=== PATIENT | male | born 1990 | race African-American/Black ===

== ENCOUNTER 2020-12-21 15:17 | Emergency (ER) | payer MEDICAID, OTHER, SELFPAY ==
--- NOTE | 2020-12-21 15:21 | ED_ITS ---
HPI - Alcohol General Chief Complaint: ETOH/Substance Use Stated Complaint: ETOH ? DRUG USE Time Seen by Provider: 12/21/20 15:21 Source: patient and EMS Mode of arrival: EMS Limitations: other (intoxicated) History of Present Illness HPI narrative: bystanders noted him stumbling around, he c/o seizure this AM, smells of ETOH complaint: alcohol intoxication Last drink: Unknown Chronic alcohol use: Yes Previous visits for alcohol intoxication: No Recent trauma: No Associated symptoms: other ( i am having a seizure, i need IV dilaudid to fix it. ) Treatments prior to arrival: none Related Data Allergies Allergy/AdvReac Type Severity Reaction Status Date / Time No Known Allergies Allergy Unverified 04/26/20 18:12 [No Known Allergies*] Review of Systems Review of Systems: ROS unable to be obtained due to intoxication PMFSH Past Medical History Attestation statement: The following information was validated with the patient. Medical History Seizures Social History Social History (Updated 12/21/20 @ 15:32 by Linda Prince DO) Alcohol intake: current Smoking Status: Unknown if ever smoked Advance Directives: No Advance Directives Information Provided: Yes Physical Exam Vital Signs: Vital Signs: Last Vital Signs Pulse 109 H 12/21/20 15:35 Resp 20 12/21/20 15:35 BP 150/105 H 12/21/20 15:35 Pulse Ox 97 12/21/20 15:35 Body Mass Index 24.7 Appearance: Somnolent, ETOH odor , no acute distress Eyes: Pupils equal, round and reactive to light. Bright contacts noted ENT: Pharynx normal. Neck: Normal inspection. Neck supple. CVS: Normal heart rate and rhythm. Pulses normal. Respiratory: No respiratory distress. Breath sounds normal. Abdomen: Soft and nontender. Skin: Skin warm and dry. Normal skin color. Normal skin turgor. Extremities: No lower extremity edema. No calf ttp Neuro: Oriented X 3. No motor deficit. No sensory deficit. Course Course Course Narrative: signed out to Janelle ORDONEZ pending labs and improvement MDM - Alcohol MDM Narrative Medical decision making narrative: 30 yo male with hx of seizures, smells of ETOH - he states he had a seizure this morning after being found stumbling around he admits to drinking and is asking for dilaudid Lab Data Result diagrams: 12/21/20 16:06 12/21/20 16:06 Labs: Lab Results 12/21/20 Range/Units 16:06 WBC 4.7 L (4.8-10.8) X10*3/uL RBC 4.96 (4.60-5.80) X10*6/uL Hgb 14.9 (14.0-18.0) g/dl Hct 43.8 (42-52) % MCV 88.3 (80-98) fL MCH 30.0 (27.0-33.0) pg MCHC 34.0 (31.0-36.0) g/dl RDW 14.4 (11.0-16.0) % Plt Count 282 (160-400) X10*3/uL MPV 9.6 (9.4-12.4) fL Immature Gran % (Auto) 0.2 (0.0-0.4) % Neut % (Auto) 54.0 (45-73) % Lymph % (Auto) 35.3 (20-40) % [place] % (Auto) 7.7 (2-11) % Eos % (Auto) 2.4 (0-4) % Baso % (Auto) 0.4 (0-2) % Lymph # (Auto) 1.6 (1.2-4.9) X10*3/uL [place] # (Auto) 0.4 (0.1-1.2) X10*3/uL Eos # (Auto) 0.1 (0.0-0.4) X10*3/uL Baso # (Auto) 0.0 (0.0-0.2) X10*3/uL Abs Immat Gran (auto) 0.01 (0.00-0.03) X10*3/uL Absolute Neuts (auto) 2.5 (2.0-8.3) X10*3/uL Absolute Nucleated RBC 0.000 (0.0-0.012) X10*3/uL Nucleated RBC % (auto) 0.0 (0.0-0.2) /100WBC
[2020-12-21 15:35] VITALS: BP 150/105; BP 160/90; PULSE 109; PULSE 110; RESP 20; O2SAT 97; O2SAT 98; BMI 24.7
[2020-12-21] MEDS: levETIRAcetam in NaCl (iso-os) 1,000 MG/100 ML PIGGYBACK 400 MG IV (16:13)
[2020-12-21 16:15] LABS: MANUAL DIFF FLAG NO
[2020-12-21 16:19] LABS: Basophils Percent Auto 0.4 % (0-2); Eosinophils Absolute Auto 0.1 X10*3/uL (0.0-0.4); Eosinophils Percent Auto 2.4 % (0-4); Hematocrit 43.8 % (42-52); Hemoglobin 14.9 g/dl (14.0-18.0); Imm Gran Abs Auto 0.01 X10*3/uL (0.00-0.03); Imm Gran Pct Auto 0.2 % (0.0-0.4); Lymphocytes Absolute Auto 1.6 X10*3/uL (1.2-4.9); Lymphocytes Percent Auto 35.3 % (20-40); Mean Corpuscular Volume 88.3 fL (80-98); Mean Platelet Volume 9.6 fL (9.4-12.4); Monocytes Absolute Auto 0.4 X10*3/uL (0.1-1.2); Monocytes Percent Auto 7.7 % (2-11); Neutrophils Absolute Auto 2.5 X10*3/uL (2.0-8.3); Platelet Count 282 X10*3/uL (160-400); Red Blood Count 4.96 X10*6/uL (4.60-5.80); Red Cell Distribution Width 14.4 % (11.0-16.0); White Blood Count 4.7 X10*3/uL (4.8-10.8)
--- NOTE | 2020-12-21 16:31 | PC.NURSE ---
Pt noted with slrred speech, not answering all questions appropriately. Admits to ETOH but does not offer details on amount and ETOH frequency. Backpack placed in decon room. Reports h/o seizures, IV established and labs drawn, Keppra IV started per order. Pt easily redirected when needed. Cooperative with care at this time.
[2020-12-21 16:37] LABS: COVID-19 Test Negative (Negative); IDNOW Serial# 9DD0AD1C
[2020-12-21 16:40] LABS: Ethanol 415 mg/dL
[2020-12-21 16:43] LABS: Alanine Aminotransferase 34 U/L (0-40); Albumin Level 4.7 g/dL (3.5-5.0); Alkaline Phosphatase 107 U/L (39-117); Anion Gap 16 (12-20); Aspartate Amino Transferase 51 U/L (5-37); Bilirubin Direct < 0.2 mg/dL (0.0-0.5); Bilirubin Total 0.3 mg/dL (0.0-1.0); Blood Urea Nitrogen 5 mg/dL (9-16); Calcium 9.4 mg/dL (8.4-10.2); Carbon Dioxide 29 mmol/L (22-29); Chloride 102 mmol/L (96-108); Creatinine Clr Calc Pharmacy 90.6; Estimated Glomerular Filt Rate > 60; Glucose Random 108 mg/dL (60-115); Magnesium 2.2 mg/dL (1.6-2.6); Potassium 3.9 mmol/L (3.3-5.1); Sodium 143 mmol/L (135-145); Total Protein 8.1 g/dL (6.5-8.0)
[2020-12-21 17:08] LABS: Phenytoin Dilantin < 0.5 ug/mL (10.0-20.0)
--- NOTE | 2020-12-21 17:12 | PC.NURSE ---
Critical lab result received (Phenytoin <0.5), MERY Monson notified.
[2020-12-21 19:51] VITALS: BP 127/65; PULSE 107; RESP 17; TEMP 36.4; O2SAT 99
--- NOTE | 2020-12-21 21:05 | PC.NURSE ---
Patient got out of bed without notifying this RN or other staff while this RN was with another patient, and used bathroom. Witnessed steady gait upon return to ED Bed [address]. No urine specimen collected due to this, encouraged to provide urine specimen when able. Pt agreed then went back to sleep.
--- NOTE | 2020-12-21 21:41 | PC.NURSE ---
Patient angry about being in ED, states I'm just gonna walk out of here! Give me some damn bonnie mohamud . This RN explained need for sober ride home from friend or family member, or he has to stay until the morning due to high ETOH levels. Requested & given bonnie mohamud. Pt redirectable.
--- NOTE | 2020-12-21 22:03 | PC.NURSE ---
While this RN was in another room, patient eloped/left ED. Elopement witnessed by registration staff member in ED waiting room. IV access was not removed prior to eloping. This RN contacted the patient, who picked up his phone. This RN asked the patient to return in order to remove IV access. Pt stated Nah, I'm gonna hit you up later and hung up the phone on this RN. Pt did not parts picker again when this RN tried to call back. restoration silversmith, provider (MERY Evans) aware.
--- NOTE | 2020-12-21 22:13 | PC.NURSE ---
This RN contacted [place] [employer] regarding patient's elopement with IV access still in place. Requested wellness check and IV removal at address on file. Confirmed on hospital camera, last seen leaving [facility] ED entrance at 21:52. [employer] aware of this. Ambulated with steady gait out of ED. Provider (MERY Evans) and application security engineer aware.
== END 2020-12-21 22:20 | disposition left against medical advice (07) ==
PROVIDERS: Emergency Provider Emergency Medicine
DX: R56.9 Unspecified convulsions (principal); F10.129 Alcohol abuse with intoxication, unspecified; Y90.9 Presence of alcohol in blood, level not specified; Z20.822 Contact with and (suspected) exposure to COVID-19; Z79.899 Other long term (current) drug therapy
CPT/HCPCS: 36415; 80048; 80076; 80185; 80320; 83735; 85025; 87635; 96372; 99284; J1953